=== PATIENT | female | born 2000 | race Caucasian/White ===

== ENCOUNTER → 2025-01-18 10:02 | Outpatient (REF) | payer OTHER, SELFPAY | LOC: OHS 10:02 | PROVIDERS: ATTENDING PHYSICIAN Nurse Practitioner Family | DX: Z23 Encounter for immunization (principal) | CPT/HCPCS: 36415; 86480; 86706 ==

== ENCOUNTER → 2025-01-23 09:24 | Outpatient (REF) | payer OTHER, SELFPAY | LOC: OHS 09:24 | PROVIDERS: ATTENDING PHYSICIAN Nurse Practitioner Family | DX: Z23 Encounter for immunization (principal) | CPT/HCPCS: 36415; 86480 ==